=== PATIENT | male | born 1985 | race Caucasian/White ===

== ENCOUNTER 2016-11-12 15:29 | Emergency (ER) | payer OTHER ==
[~2016-11-12] VITALS: Ht 188 cm; Wt 89.9 kg
[2016-11-12 15:33] VITALS: BP 113/66; PULSE 82; TEMP 36.7; O2SAT 98; Ht 188 cm; Wt 89.9 kg
[2016-11-12] MEDS ORDERED: HYDR-5688 PO (15:50)
--- NOTE | 2016-11-14 10:38 | EMERGENCY ROOM VISIT NOTE ---
ED Visit Note First contact with patient: 15:37 CHIEF COMPLAINT: Severe toothache. HISTORY OF PRESENT ILLNESS: Mr. Santos is a 31-year-old white male who ambulates into the ED accompanied by female friend complaining of severe dental pain. He reports a progressive dental pain for the last 2 days hours over the right maxilla. The pain is now steady and severe and radiates to the face. He has been using but has had ibuprofen without relief and his pain became so severe last night he could not sleep. Currently he is complaining of a deep aching and throbbing pain in the area of teeth 28-30. He rates her discomfort 9/10. His pain does radiate through the maxilla and into the preauricular area. His pain worsens with palpation, chewing and exposure hot and cold foods. He has not identified any alleviating factors related to the pain. He denies any associated symptoms including fevers , chills, sweats, facial swelling, sore throat, difficulty swallowing, voice changes, drooling. REVIEW OF SYSTEMS: As noted above in History of Present Illness. 8 body systems were reviewed with this patient and found to be negative unless noted above otherwise. PMH: Gastric ulcers. CURRENT MEDICATION: Patient denies.. ALLERGIES TO MEDICATION: Patient denies. SOCIAL HISTORY: Patient is currently employed; he feels safe in his home environment; he admits to tobacco use and denies alcohol use. PHYSICAL EXAM: Vital Signs: Date Time Temp Pulse Resp B/P (MAP) Pulse Ox O2 Delivery O2 Flow Rate FiO2 11/12/16 15:33 36.7 82 16 113/66 98 Room Air General: 31 year-old white male in moderate distress due to pain, nontoxic appearing, afebrile and hemodynamically stable. Neurological: Awake, alert and oriented to person, place and time. Answering questions appropriately and following commands. Skin: Warm, dry and pink. No soft tissue lesions, rashes, or trauma noted. HEENT: Atraumatic and normocephalic. No facial swelling or erythema. Airway is patent. Oral cavity is moist and pink. Uvula is midline and no abscesses are seen. Speech is normal. Patient has multiple decaying teeth and caries throughout his mouth. Teeth 28 through 30 are tender to palpation. There is no local erythema or edema in the gingiva. I was not able to palpate any abscesses. No cervical or submandibular lymphadenopathy. ED COURSE: Patient is assessed as noted above. Patient is educated about his findings and instructed on his treatment plan; he verbalizes understanding and agreement with this plan. CLINIC IMPRESSION: Dental pain due to caries. DISPOSITION: Patient discharged home in stable condition; prior to departure he was reassessed and subjectively reported he was feeling the same. PLAN: Comfort measures were discussed including a sliding pain scale of ibuprofen, acetaminophen and [place]. He was given appropriate narcotic precautions and his name was checked on the state database and no red flags were noted. Additional comfort measures including use of dental wax and a liquid/mechanical soft diet were discussed. Patient was encouraged to followup with personal dentist for definitive care and treatment. Patient was encouraged to return the ED for worsening/uncontrolled pain facial swelling, fevers or any new/concerning symptoms.
== END 2016-11-12 15:56 | disposition home or self-care (01) ==
LOC: C.EDB 15:31 → C.EDD 15:56
DX: K02.9 Dental caries, unspecified (principal); Z72.0 Tobacco use

== ENCOUNTER 2017-03-11 16:26 | Emergency (ER) | payer OTHER ==
[~2017-03-11] VITALS: Ht 188 cm; Wt 102.3 kg
[~2017-03-11 16:26] MED LIST: HYDR-5688 PO
[2017-03-11 16:28] VITALS: TEMP 36.4; Ht 188 cm; Wt 102.3 kg
[2017-03-11] MEDS ORDERED: CLR10 PO (16:47)
[2017-03-11] MEDS ORDERED: ONDA8TAB62 SL (16:47)
[2017-03-11] MEDS ORDERED: PRLSR20 PO (16:47)
[2017-03-11] MEDS ORDERED: FLUO10CA48 PO (16:47)
[2017-03-11] MEDS ORDERED: LORAZEPAM 1 MG TAB PO STA (17:15)
[2017-03-11] MEDS ORDERED: XYLOCAINE 1%/SOD BICARB 20 ML VIAL INFIL ONE (17:15)
[2017-03-11] MEDS ORDERED: DIPHTHERIA/TETANUS/PERTUSSIS 0.5 ML SYR/VIAL IM. ONE (17:15)
[2017-03-11] MEDS ORDERED: AMOXICILLIN/CLAVULANATE TAB 875 MG TAB PO ONE (17:30)
[2017-03-11] MEDS ORDERED: AMOX875T PO (18:30)
[2017-03-11 18:52] VITALS: BP 138/80; PULSE 76; O2SAT 97
--- NOTE | 2017-03-11 20:52 | EMERGENCY ROOM VISIT NOTE ---
History First contact with patient: 16:45 Chief Complaint: BITE Stated Complaint: MOUTH PAIN History of Present Illness The patient is a 31 year old male who presents to the Emergency Room with complaints of laceration to his upper lip that occurred about one hour ago. Evidently a family member of the patient is currently admitted here in the hospital. The patient was watching the family members 2 dogs, and one of them bit and his mouth today. The patient states the dogs are up-to-date on their rabies and are otherwise healthy. The patient is unsure of his tetanus. The bleeding has stopped. He does not report other pain and has not done anything [id number] for his symptoms. The patient refuses to fill out the dog bite form. Review of Systems More than 10 systems were reviewed and otherwise negative with the exception of history of present illness. Past Medical/Surgical History No reported chronic medical disease Family History No pertinent family history Social History Smoking Status: Current Every Day Smoker Housing Status: lives with significant other Current/Historical Medications Scheduled Amoxicillin & Pot Clavulanate (Augmentin 875-125 mg), 1 TAB PO BID Fluoxetine (Prozac), 10 MG PO DAILY Loratadine (Claritin), 10 MG PO DAILY Omeprazole (Prilosec), 20 MG PO DAILY Scheduled PRN Ondansetron Odt (Zofran Odt), 8 MG SL Q8 PRN for Nausea Physical Exam Vital Signs Date Time Temp Pulse Resp B/P (MAP) Pulse Ox O2 Delivery O2 Flow Rate FiO2 03/11/17 18:52 76 18 138/80 97 03/11/17 16:28 36.4 85 20 129/85 98 Room Air Physical Exam VITALS: Vitals are noted on the nurse's note and reviewed by myself. Vital signs stable. GENERAL: Well-developed, well-nourished, anxious white male, MOUTH: There is a 2.5 cm laceration through the mid upper lip. This does not cross the vermilion border but will require repair. Mucous membranes moist. Tonsils are not enlarged. Pharynx without erythema, blood, or exudate. Uvula midline. Airway patent. NECK: Supple without nuchal rigidity. No lymphadenopathy. No thyromegaly. Cervical spine is nontender. HEART: Regular rate and rhythm without murmurs gallops or rubs. LUNGS: Clear to auscultation bilaterally without wheezes, rales or rhonchi. No retractions or accessory muscle use. Medical Decision & Procedures Medications Administered Medications (Trade) Dose Ordered Sig/Mandi Route Start Time Stop Time Status Last Admin Dose Admin Lidocaine HCl (Buffered Lidocaine 1% Inj) 20 ml NOW ONCE INFIL 03/11/17 17:15 03/11/17 17:17 DC 03/11/17 17:28 20 ML Lorazepam (Ativan Tab) 1 mg NOW STAT PO 03/11/17 17:15 03/11/17 17:17 DC 03/11/17 17:29 1 MG Diphtheria/ Pertussis/Tetanus Vacc (Adacel Inj) 0.5 ml ONCE ONCE IM. 03/11/17 17:15 03/11/17 17:17 DC 03/11/17 17:28 0.5 ML Amoxicillin/ Clavulanate Potassium (Augmentin Tab) 875 mg NOW ONCE PO 03/11/17 17:30 03/11/17 17:31 DC 03/11/17 17:29 875 MG Procedure Laceration repair. Patient elects to have their laceration repaired. Verbal consent was obtained to perform the procedure. There is an abundance of materials available for the procedure. Patient is not allergic to latex. Repair was performed with assistance from Janice Gomez, physician [employer] assistant manager student, under my direct supervision. Using sterile technique the wound was cleaned with Betadine. The area was sterilely draped. 4 ml of 1% buffered lidocaine was used to anesthetize the lip laceration. Once the patient was anesthetized, the wound was copiously irrigated under pressure with sterile saline. The wound was explored and there were no deep structures injured such as tendons, bone, or significant blood vessels. The laceration was repaired using 8 simple interrupted 6-0 Vicryl sutures with the wound edges being well approximated. Hemostasis was achieved. The area was cleaned with sterile saline and dressed with bacitracin ointment and bandage. The patient was given a tetanus booster. Patient tolerated the procedure well without complications. Blood loss was negligible. ED Course Physical exam and history were performed. Nursing notes, EMR, and Medication List were personally reviewed. Patient appears to have been bitten by a family member's dog that he was taking care of today. The story sounds like the dog that bit the patient is immunized. The patient was given a tetanus here in the department. I did provide him 1 mg of oral Ativan as he is very anxious about needing stitches. Stitches were placed as above, and the patient did tolerate this well. The patient will be given a course of Augmentin. Dog bite form was completed to the best of our ability as the patient refuses to provide additional information. The patient was given discharge instructions as below and invited back to the ER with any new, worsening, or concerning symptoms. The chart was completed utilizing [employer] Speech Voice Recognition Software. Grammatical errors, random word insertions, pronoun errors, and incomplete sentences are an occasional consequence of this system due to software limitations, ambient noise, and hardware issues. Any formal questions or concerns about the content, text, or information contained within the body of this dictation should be directly addressed to the provider for clarification. . Medical Decision Differential diagnosis: Etiologies such as laceration, abrasion, cellulitis, abscess, MRSA infection, DVT, necrotizing fasciitis, dermatitis, drug eruption, as well as others were entertained.. Impression Primary Impression: Dog bite of skin of lip Departure Information Dispostion Home / Self-Care Condition GOOD Prescriptions Amoxicillin & Pot Clavulanate (Augmentin 875-125 mg) 1 Tab Tab 1 TAB PO BID for 9 Days, #18 TAB Prov: Teo Matias PA-C 03/11/17 Forms HOME CARE DOCUMENTATION FORM, IMPORTANT VISIT INFORMATION Patient Instructions My [facility] Additional Instructions You were seen and evaluated today on an emergency basis only. This is not a substitute for, or an effort to provide, complete comprehensive medical care. It is not possible to recognize and treat all injuries or illnesses in a single emergency department visit. For this reason it is recommended that you followup with your primary care physician next week for ongoing care and evaluation. Amoxicillin Clavulanate (Augmentin) 875mg: Take one pill twice daily for 10 days to prevent infection. All antibiotics can cause diarrhea. If this occurs and you feel worse or it does not resolve in 1-2 days follow up with your doctor or return to the Emergency Department as this could be signs of serious underlying problems. Any medication can cause an allergic reaction, stop the pills immediately and return to the ER for rash, hives, breathing difficulties, or swelling. Keep wound clean and dry. Do not allow any crusting or dried blood to accumulate on sutures. If this occurs, use a mild soap/water on a Q-tip to clean the wound. Do not use Peroxide to clean the wound as this can delay healing You may bathe and shower as normal, but DO NOT SOAK the wound. Sutures are dissolvable and should stay in for atleast 7 days. Return sooner for any signs of infection, increasing redness, swelling, or drainage. You are welcome to return to the emergency department anytime with new, worsening, or concerning symptoms.
== END 2017-03-11 18:52 | disposition home or self-care (01) ==
LOC: C.EDB 16:27 → C.EDD 18:52
DX: S00.571A Other superficial bite of lip, initial encounter (principal); W54.0XXA Bitten by dog, initial encounter; F17.200 Nicotine dependence, unspecified, uncomplicated; Z23 Encounter for immunization

== ENCOUNTER 2017-08-11 15:19 | Emergency (ER) | payer OTHER ==
[~2017-08-11] VITALS: Ht 188 cm; Wt 111.7 kg
[~2017-08-11 15:19] MED LIST changes: +FLUO10CA48 PO; -HYDR-5688 PO
[2017-08-11 15:22] VITALS: BP 117/77; PULSE 73; TEMP 36.6; O2SAT 99; Ht 188 cm; Wt 111.7 kg
[2017-08-11] MEDS ORDERED: AMOX875T PO (15:36)
[2017-08-11] MEDS ORDERED: HYDR-5688 PO (15:36)
--- NOTE | 2017-08-11 15:37 | EMERGENCY ROOM VISIT NOTE ---
ED Visit Note First contact with patient: 15:26 CHIEF COMPLAINT: "Swollen face, tooth pain". HISTORY OF PRESENT ILLNESS: This 32-year-old male patient presented to the emergency department via private vehicle with a progressive toothache for past day. The patient believes it is coming from right superior molars. The pain is now steady and severe and radiates to the face. The patient has a dentist appointment set up tomorrow. They rate their pain a 8/10. He notes swelling developed over the past day but there is no fever. The patient denies any discharge from the mouth. REVIEW OF SYSTEMS: A 6 system review of systems was completed with positives and pertinent negatives listed in the HPI. ALLERGIES: [place] MEDICATIONS: As noted below PMH: No pertinent SOCIAL HISTORY: Patient lives locally per PHYSICAL EXAM: Vitals are noted on the nurse's note and reviewed by myself. Vital signs stable. Temperature 36.6C orally. GENERAL: 32-year-old male, in no acute distress, nondiaphoretic, well-developed well-nourished. There is minimal swelling noted to the right cheek overlying the right anterior superior dentition extending to the molar region in the mouth: The right superior anterior and posterior molar region is very carious and the gum is swollen and tender around it, without any discharge or signs of an abscess. The remainder of the pharynx and tonsils are without erythema, edema, or exudate. The airway is patent. There is no facial swelling, cervical or submandibular lymphadenopathy. The patient appears uncomfortable and in pain. The patient has overall fair dental hygiene. EARS: External auditory canals clear, tympanic membranes pearly quinteros without erythema or effusion bilaterally. There is no pain with assessment of the EOMs. No erythema. No palpable fluctuant region. ED COURSE: Patient was seen and evaluated as above. He is afebrile, nontoxic- appearing and denies any systemic symptoms of infection. He has 1 day of tooth pain and swelling of the cheek. It is minimal swelling. No involvement to the eye. I believe this time he is a candidate for outpatient management with his dentist appointment tomorrow that is already scheduled around 11 AM. He will be given Augmentin for infection control, as well as [place] for pain control. He was thoroughly educated upon worrisome symptoms which to return, to include but not limited to increased swelling, redness, drainage from the mouth, or swelling that progresses to the eye. He was evaluated for any potential abscess of which none were appreciated upon my exam. No evidence of Cong angina, or airway compromise. He was educated upon use of the antibiotic as well as the pain medication. He will not be driving. He was educated upon management, educated upon worrisome symptoms which to return, had questions in spite of discharge, and was discharged home in good condition. Upon review of the [place] drug monitoring system for the specific patient no red flags were identified. In the evaluation and treatment of this patient, the following differential diagnoses were considered: Periapical Abscess, Osteonecrosis of the Jaw, Dental Fracture, Dental Caries, Cong's Angina, Vincent's Angina, Facial Cellulitis. Current/Historical Medications Scheduled Amoxicillin & Pot Clavulanate (Augmentin 875-125 mg), 1 TAB PO BID Fluoxetine (Prozac), 10 MG PO DAILY Loratadine (Claritin), 10 MG PO DAILY Omeprazole (Prilosec), 20 MG PO DAILY Scheduled PRN Hydrocodone/Acetaminophen 5MG/325MG ([place] 5MG/325MG), 1-2 TABLET PO Q6 PRN for Pain Ondansetron Odt (Zofran Odt), 8 MG SL Q8 PRN for Nausea Allergies Coded Allergies: [place] (Verified Allergy, Unknown, Unknown, 03/11/17) Vital Signs Date Time Temp Pulse Resp B/P (MAP) Pulse Ox O2 Delivery O2 Flow Rate FiO2 08/11/17 15:22 36.6 73 18 117/77 99 Room Air Departure Information Impression Primary Impression: Odontalgia Dispostion Home / Self-Care Condition GOOD Prescriptions Amoxicillin & Pot Clavulanate (Augmentin 875-125 mg) 1 Tab Tab 1 TAB PO BID for 10 Days, #20 TAB Prov: Tremaine Kaur PA-C 08/11/17 Hydrocodone/Acetaminophen 5MG/325MG ([place] 5MG/325MG) Tab 1-2 TABLET PO Q6 Y for Pain, #12 TAB For Initial Treatment Prov: Tremaine Kaur PA-C 08/11/17 Referrals Deena Denise M.D. (PCP) Patient Instructions My [facility] Additional Instructions You have been treated in the Emergency Department for Dental Pain. You have been prescribed [place] immediate release to be used for pain control. This is a narcotic medication. You cannot drive or consume alcohol while on this medicine. This medicine should only be used for pain that cannot be controlled with [id number] pain medicines. You were prescribed Augmentin to be taken every 12 hours for 10 days. This is an antibiotic. All antibiotics have the potential to cause diarrhea. Stop this medication and contact a medical provider if you were to develop any significant adverse side effects including: wheezing, shortness of breath, passing out, vomiting, or a diffuse rash. Always take antibiotics as directed and COMPLETE the ENTIRE course regardless of the improvement of your symptoms. For pain control, you can use the following [id number] medicines (if >12 yo): - Regular strength (325mg/tab) Tylenol (acetaminophen) 2 tabs every 4-6 hours as needed. Do not exceed 12 tablets in a 24 hour period. Avoid taking more than 3 grams (3000 mg) of Tylenol per day. This includes any other sources of acetaminophen you may take on a regular basis. Please do not take the [place] with this. - Regular strength (200 mg/tab) Advil (ibuprofen) 1-2 tabs every 4-6 hours as needed. Do not exceed a dose of 3200 mg per day. Refrain from smoking cigarettes or using chewing tobacco until you have been evaluated by your dentist. Keeping beverages lukewarm and consuming soft foods can decrease your pain. Warm compresses over the affected area may offer some relief. You MUST seek evaluation of your dental pain by a dentist following your visit to the Emergency Department. Please keep your appointment for tomorrow As we discussed if you start getting swelling/redness that is increasing please return. Return to the emergency department if you develop the following symptoms despite treatment course outlined above: fever, intractable pain, increased redness, swelling, or purulent discharge.
[2017-08-11] MEDS ORDERED: MELA3TAB12 PO (15:44)
[2017-08-11] MEDS ORDERED: BACL10TA PO (15:44)
[2017-08-16] MEDS ORDERED: FLUO20CA35 PO (15:44)
[2017-08-16] MEDS ORDERED: IBUP-1050 PO (15:44)
[2017-08-16] MEDS ORDERED: MAGN400T6 PO (15:44)
[2017-08-16] MEDS ORDERED: AMIT25TA9 PO (15:44)
[2017-08-16] MEDS ORDERED: PRLSR20 PO (16:47)
[2017-08-16] MEDS ORDERED: ONDA8TAB62 SL (16:47)
[2017-08-16] MEDS ORDERED: CLR10 PO (16:47)
[2017-08-16] MEDS ORDERED: MELA1TAB54 PO (18:47)
== END 2017-08-11 15:58 | disposition home or self-care (01) ==
LOC: C.EDB 15:21 → C.EDD 15:58
DX: K02.9 Dental caries, unspecified (principal); Z88.8 Allergy status to other drugs, medicaments and biological substances; Z79.899 Other long term (current) drug therapy